=== PATIENT | female | born 1970 | race Caucasian/White ===

== ENCOUNTER 2021-08-09 11:14 | Inpatient (IN) ==
[2021-08-09 11:41] LABS: MEAN CORPUSCULAR VOLUME 83.5 fL (80.0-100.0); MONOCYTES # (AUTO) 0.3 x10^3/uL (0.3-0.8)
[2021-08-09 11:57] VITALS: BMI 25.8
--- NOTE | 2021-08-09 12:06 | DR.COUGH ---
HPI Time Seen Time Seen by Provider: 08/09/21 11:43 PCP Primary Care Physician: NFD Complaint Chief Complaint Doctor Comments: A 51 y/o female sent over to the ED for evaluation of SOB from the infusion center here. She was scheduled for outpt. infusion for COVID. She states that she tested positive for COVID yesterday at a pharmacy in [place], [place]. She has had 5 days of weakness, cough that is mostly dry, muscle soreness, SOB, loss of taste. Chief Complaint:: PT C/O SHORTNESS OF BREATH, HYPOXIA, HEADAHCE, COUGH, NO T ASTE. PT IS A KNOWN COVID POSITIVE. PATIENT WAS SCHEDULED FOR A INFUSION THIS MORNING AND WAS NOTED TO BE HYPOXIC AND SEE THE NEED FOR FURTHER EVALUATION. WHEN PATIENT PRESENTS TO THE ED SHE IS NOTED TO HAVE NC IN PLACE AT 3LPN VIA N/C. PATIENT IS NOTED TO BE SHORT OF BREATH ESPECIALLY WITH EXERTION. PATIENT JUST ANSWERING QUESTIONS IS NOTED TO BE SHORT OF BREATH, BUT WITH OXYGEN IN [place] SHE DOESN'T SEEM TO DESAT AT THIS POINT. COVID-19 Coronavirus risk:travel/contact w/high risk person: Yes Has patient experienced Coronavirus symptoms: Yes Coronavirus symptoms experienced: Fever, Coughing and Shortness of Breath Reviewed Nurses Notes Review: Yes Source History Provided: Patient Mode of Arrival Mode of Arrival: Wheelchair Timing Onset of Chief Complaint: 08/03/21 Context Context: None Pertienent History: None Severity Severity of Cough: Moderate Shortness of Breath: Moderate Associated Signs and Symptoms Associated Signs and Symptoms: Fever and Shortness of Breath PMH PMH Past Medical History: No Past Surgical History: No Unable to Obtain Due To: denies Altered mental status, Dementia, Medical urgency and Intubated Family History History of Family Medical Conditions: No Social History Does any household member use tobacco: No Alcohol Use: None Do you use any recreational Drugs:: No Lives With: Family Lives Where: Home Travel Risk Coronavirus risk:travel/contact w/high risk person: Yes Has patient experienced Coronavirus symptoms: Yes Coronavirus symptoms experienced: Fever, Coughing and Shortness of Breath Infectious screening In the last 2 months have you had wt loss of >10#?: NO Have you had fever, night sweats or hemotysis?: No Have you traveled outside the country in the last 6 months?: No Isolation: Droplet ROS Review of Systems Constitutional: Weakness Eyes: No Symptoms Reported ENTM: No Symptoms Reported Respiratoy: Productive Cough, Non-Productive Cough and Short of Breath Cardiovascular: No Symptoms Reported Gastrointestinal/Abdominal: Other (loss of taste) Genitourinary: No Symptoms Reported Neurological: No Symptoms Reported Musculoskeletal: No Symptoms Reported Integumentary: No Symptoms Reported Hematologic/Lymphatic: No Symptoms Reported Endocrine: No Symptoms Reported Psychiatric: No Symptoms Reported PE Vitals Vitals: Temperature 98.6 F Pulse Rate [Right Brachial] 104 Pulse Rate 101 Respiratory Rate 24 Blood Pressure [Right Arm] 142/64 Blood Pressure 133/60 O2 Sat by Pulse Oximetry 92 General Limitations: No Limitations General Appearance: Alert and In No Apparent Distress Head Head Exam: Normal Inspection, Atraumatic and Normocephalic Eyes Eye exam: Normal Appearance and EOMI ENT ENT Exam: Normal Exam, Normal Oropharynx, Normal External Ear Exam and Mucous Membranes Moist Neck Neck Exam: Normal Inspection, Full ROM and Trachea Midline Chest Chest Inspection: Normal Inspection and Symmetric Chest Wall Rise Respiratory Respiratory Exam: Normal Lung Sounds Bilat Cardiovascular Cardiovascular Exam: Regular Rate, Normal Rhythm, Normal Heart Sounds, +S1 and +S2 Abdominal Exam Abdominal Exam: Normal Inspection, Normal Bowel Sounds and Soft Extremities Extremities Exam: Normal Inspection and Full ROM Back Back Exam: Normal Inspection and Full ROM Neurologic Neurological Exam: Alert and Oriented X3 Psychiatric Psychiatric Exam: Normal Affect and Normal Mood Skin Skin Exam: Intact COURSE Reevaluation 1st: Unchanged Consultation Consultation Comments: I spoke with her referring physician (Dr. ALFARO) and reviewed the labs. and CXR with him. Dr. ALFARO agreed with my recommendation for in-house treatment for COVID-19 pneumonia using Remdesivir daily infusion. I did also inform the pt. of plan to admit her for treatment and she is alright with the recommendation also. . ROR Labs Reviewed Laboratory Results Reviewed?: Yes Result Diagrams: 08/09/21 11:50 08/09/21 11:50 Laboratory: WBC 3.5 X10^3/uL (3.6-10.0) L 08/09/21 11:50 RBC 4.23 X10^6/uL (3.5-5.4) 08/09/21 11:50 Hgb 11.9 g/dL (12.0-16.0) L 08/09/21 11:50 Hct 35.3 % (36.0-47.0) L 08/09/21 11:50 MCV 83.5 fL (80.0-100.0) 08/09/21 11:50 MCH 28.2 pg (27.0-34.0) 08/09/21 11:50 MCHC 33.7 g/dL (33.0-35.0) 08/09/21 11:50 RDW 14.9 % (11.6-16.5) 08/09/21 11:50 Plt Count 150 X10^3/uL (150.0-450.0) 08/09/21 11:50 MPV 8.5 fL (7.4-11.0) 08/09/21 11:50 Neut % (Auto) 68.5 % (42.0-75.0) 08/09/21 11:50 Lymph % (Auto) 23.9 % (21.0-51.0) 08/09/21 11:50 [place] % (Auto) 7.4 % (0.0-13.0) 08/09/21 11:50 Eos % (Auto) 0.0 % (0.9-2.9) L 08/09/21 11:50 Baso % (Auto) 0.2 % (0.2-1.0) 08/09/21 11:50 Neut # (Auto) 2.4 x10^3/uL (2.2-4.8) 08/09/21 11:50 Lymph # (Auto) 0.8 X10^3/uL (1.3-2.9) L 08/09/21 11:50 [place] # (Auto) 0.3 x10^3/uL (0.3-0.8) 08/09/21 11:50 Eos # (Auto) 0.0 x10^3/uL (0.0-0.2) 08/09/21 11:50 Baso # (Auto) 0.0 X10^3/uL (0.0-0.1) 08/09/21 11:50 Absolute Nucleated RBC 0.2 /100WBC 08/09/21 11:50 D-Dimer 0.77 ug/ml (0.0-0.57) H* 08/09/21 11:50 Sample Site Lr 08/09/21 12:03 ABG pH 7.470 (7.35-7.45) H 08/09/21 12:03 ABG pCO2 31.0 mmHg (35.0-45.0) L 08/09/21 12:03 ABG pO2 78.0 mmHg (80.0-100.0) L 08/09/21 12:03 ABG HCO3 22.6 mmol/L (22-26) 08/09/21 12:03 ABG O2 Saturation 96.0 % (90-100) 08/09/21 12:03 ABG Base Excess -0.3 mmol/L (-2.0-2.0) 08/09/21 12:03 Robert Test Pos 08/09/21 12:03 A-a Gradient 83.0 mmHg 08/09/21 12:03 FiO2 28.0 08/09/21 12:03 Blood Gas Comments Darshan well. sd 08/09/21 12:03 Sodium 134 mmol/L (136-145) L 08/09/21 11:50 Corrected Sodium 138 mmol/L (136-145) 08/09/21 11:50 Potassium 4.3 mmol/L (3.5-5.1) 08/09/21 11:50 Chloride 98 mmol/L (98-107) 08/09/21 11:50 Carbon Dioxide 26.7 mmol/L (21-32) 08/09/21 11:50 BUN 21 mg/dL (7-18) H 08/09/21 11:50 Creatinine 1.05 mg/dL (0.55-1.02) H 08/09/21 11:50 Est GFR (MDRD) Af Amer > 60 (>60) 08/09/21 11:50 Est GFR (MDRD) Non-Af 58 (>60) L 08/09/21 11:50 Glucose 246 mg/dL (65-99) H 08/09/21 11:50 Calcium 9.0 mg/dL (8.5-10.1) 08/09/21 11:50 Corrected Calcium 10.0 mg/dL (8.5-10.1) 08/09/21 11:50 Ferritin 1450 ng/mL (8-252) H 08/09/21 11:50 Total Bilirubin 0.60 mg/dL (0.2-1.0) 08/09/21 11:50 AST 119 Units/L (15-37) H 08/09/21 11:50 ALT 62 Units/L (12-78) 08/09/21 11:50 Alkaline Phosphatase 185 Units/L (46-116) H 08/09/21 11:50 C-Reactive Protein 69.90 mg/L (0-3.0) H 08/09/21 11:50 B-Natriuretic Peptide 42.1 pg/mL (0-79) 08/09/21 11:50 Total Protein 8.3 g/dL (6.4-8.2) H 08/09/21 11:50 Albumin 2.7 g/dL (3.4-5.0) L 08/09/21 11:50 Globulin 5.6 g/dL (2.5-4.5) H 08/09/21 11:50 Albumin/Globulin Ratio 0.5 Ratio (1.1-2.1) L 08/09/21 11:50 XRAY XRAY Interpreted by: Self X-ray Results: CXR: Nodular opacities b/l, compatible with COVID Pneumonia. Radiology report is pending. Opioid Opioid Risk Tool Age (Rahul box if 16-45): No History of Preadolescent Sexual Abuse: No Total: 0 Total Score Risk Category: Low Risk Copyright: Flaquito HUDDLESTON predicting aberrant behaviors Diagnosis Discharge Problem: Pneumonia due to COVID-19 virus
[2021-08-09 12:08] LABS: ABG ALLEN TEST POS; ABG BASE EXCESS -0.3 mmol/L (-2.0-2.0); ABG HCO3 22.6 mmol/L (22-26)
[2021-08-09 12:08] LABS: BASOPHILS % (AUTO) 0.2 % (0.2-1.0); HEMATOCRIT 35.3 % (36.0-47.0); HEMOGLOBIN 11.9 g/dL (12.0-16.0); LYMPHOCYTES # (AUTO) 0.8 X10^3/uL (1.3-2.9); LYMPHOCYTES % (AUTO) 23.9 % (21.0-51.0); MEAN CORPUSCULAR HEMOGLOBIN 28.2 pg (27.0-34.0); MEAN CORPUSCULAR HGB CONC 33.7 g/dL (33.0-35.0); MEAN PLATELET VOLUME 8.5 fL (7.4-11.0); MONOCYTES % (AUTO) 7.4 % (0.0-13.0); NEUTROPHILS # (AUTO) 2.4 x10^3/uL (2.2-4.8); NEUTROPHILS % (AUTO) 68.5 % (42.0-75.0); PLATELET COUNT 150 X10^3/uL (150.0-450.0); RED BLOOD COUNT 4.23 X10^6/uL (3.5-5.4); RED CELL DISTRIBUTION WIDTH 14.9 % (11.6-16.5); WHITE BLOOD COUNT 3.5 X10^3/uL (3.6-10.0)
[2021-08-09 12:18] LABS: ALANINE AMINOTRANSFERASE 62 Units/L (12-78); ALBUMIN 2.7 g/dL (3.4-5.0); ALKALINE PHOSPHATASE 185 Units/L (46-116); ASPARTATE AMINO TRANSFERASE 119 Units/L (15-37); BLOOD UREA NITROGEN 21 mg/dL (7-18); CARBON DIOXIDE 26.7 mmol/L (21-32); CHLORIDE 98 mmol/L (98-107); COR NA(FOR HYPERGLY) 138 mmol/L (136-145); CREATININE 1.05 mg/dL (0.55-1.02); SODIUM 134 mmol/L (136-145); TOTAL PROTEIN 8.3 g/dL (6.4-8.2); eGFR NON BLACK RACES 58 (>60)
[2021-08-09] MEDS ORDERED: BENADRYL INJ 50 MG VIAL IV ONE (15:10)
[2021-08-09] MEDS ORDERED: REMDESIVIR 200 MG in NS 250 ML IV 250 ML IV ONE (15:18)
[2021-08-09] MEDS ORDERED: TYLENOL 325 MG TAB PO ONE (16:12)
[2021-08-09] MEDS ORDERED: BENADRYL INJ 50 MG VIAL ONE (16:12)
[2021-08-09] MEDS ORDERED: SOLU-Medrol 125 MG VIAL ONE (16:12)
[2021-08-09] MEDS ORDERED: NS 250 ML IV 250 ML IV ONE (16:13)
[2021-08-09] MEDS ORDERED: REMDESIVIR IV ONE (16:13)
--- NOTE | 2021-08-09 16:26 | DR.H&P ---
H&P History & Physical for Day of: H&P Date: 08/09/21 Chief Complaint Chief Complaint: Covid-19 Allergies Allergies Allergy/AdvReac Type Severity Reaction Status Date / Time No Known Drug Allergies Allergy Verified 08/09/21 11:15 History of Present Illness History of Present Illness: 51 yo WF with Covid pneumonia and hypoxia. Social History Does patient currently use any type of tobacco product: No Have you used tobacco products in the last 12 months: No Does any household member use tobacco: No Alcohol Use: None Medications Home Medications: No Known Drug Allergies Allergy (Verified 08/09/21 11:15) CONTINUE taking the following medications NK 08/09/21 [History] Labs Result Diagrams: 08/10/21 04:07 08/10/21 04:07 Labs: Laboratory WBC 3.5 X10^3/uL (3.6-10.0) L 08/09/21 11:50 RBC 4.23 X10^6/uL (3.5-5.4) 08/09/21 11:50 Hgb 11.9 g/dL (12.0-16.0) L 08/09/21 11:50 Hct 35.3 % (36.0-47.0) L 08/09/21 11:50 MCV 83.5 fL (80.0-100.0) 08/09/21 11:50 MCH 28.2 pg (27.0-34.0) 08/09/21 11:50 MCHC 33.7 g/dL (33.0-35.0) 08/09/21 11:50 RDW 14.9 % (11.6-16.5) 08/09/21 11:50 Plt Count 150 X10^3/uL (150.0-450.0) 08/09/21 11:50 MPV 8.5 fL (7.4-11.0) 08/09/21 11:50 Neut % (Auto) 68.5 % (42.0-75.0) 08/09/21 11:50 Lymph % (Auto) 23.9 % (21.0-51.0) 08/09/21 11:50 [place] % (Auto) 7.4 % (0.0-13.0) 08/09/21 11:50 Eos % (Auto) 0.0 % (0.9-2.9) L 08/09/21 11:50 Baso % (Auto) 0.2 % (0.2-1.0) 08/09/21 11:50 Neut # (Auto) 2.4 x10^3/uL (2.2-4.8) 08/09/21 11:50 Lymph # (Auto) 0.8 X10^3/uL (1.3-2.9) L 08/09/21 11:50 [place] # (Auto) 0.3 x10^3/uL (0.3-0.8) 08/09/21 11:50 Eos # (Auto) 0.0 x10^3/uL (0.0-0.2) 08/09/21 11:50 Baso # (Auto) 0.0 X10^3/uL (0.0-0.1) 08/09/21 11:50 Absolute Nucleated RBC 0.2 /100WBC 08/09/21 11:50 D-Dimer 0.77 ug/ml (0.0-0.57) H* 08/09/21 11:50 Sample Site Lr 08/09/21 12:03 ABG pH 7.470 (7.35-7.45) H 08/09/21 12:03 ABG pCO2 31.0 mmHg (35.0-45.0) L 08/09/21 12:03 ABG pO2 78.0 mmHg (80.0-100.0) L 08/09/21 12:03 ABG HCO3 22.6 mmol/L (22-26) 08/09/21 12:03 ABG O2 Saturation 96.0 % (90-100) 08/09/21 12:03 ABG Base Excess -0.3 mmol/L (-2.0-2.0) 08/09/21 12:03 Robert Test Pos 08/09/21 12:03 A-a Gradient 83.0 mmHg 08/09/21 12:03 FiO2 28.0 08/09/21 12:03 Blood Gas Comments Darshan well. sd 08/09/21 12:03 Sodium 134 mmol/L (136-145) L 08/09/21 11:50 Corrected Sodium 138 mmol/L (136-145) 08/09/21 11:50 Potassium 4.3 mmol/L (3.5-5.1) 08/09/21 11:50 Chloride 98 mmol/L (98-107) 08/09/21 11:50 Carbon Dioxide 26.7 mmol/L (21-32) 08/09/21 11:50 BUN 21 mg/dL (7-18) H 08/09/21 11:50 Creatinine 1.05 mg/dL (0.55-1.02) H 08/09/21 11:50 Est GFR (MDRD) Af Amer > 60 (>60) 08/09/21 11:50 Est GFR (MDRD) Non-Af 58 (>60) L 08/09/21 11:50 Glucose 246 mg/dL (65-99) H 08/09/21 11:50 Calcium 9.0 mg/dL (8.5-10.1) 08/09/21 11:50 Corrected Calcium 10.0 mg/dL (8.5-10.1) 08/09/21 11:50 Ferritin 1450 ng/mL (8-252) H 08/09/21 11:50 Total Bilirubin 0.60 mg/dL (0.2-1.0) 08/09/21 11:50 AST 119 Units/L (15-37) H 08/09/21 11:50 ALT 62 Units/L (12-78) 08/09/21 11:50 Alkaline Phosphatase 185 Units/L (46-116) H 08/09/21 11:50 C-Reactive Protein 69.90 mg/L (0-3.0) H 08/09/21 11:50 B-Natriuretic Peptide 42.1 pg/mL (0-79) 08/09/21 11:50 Total Protein 8.3 g/dL (6.4-8.2) H 08/09/21 11:50 Albumin 2.7 g/dL (3.4-5.0) L 08/09/21 11:50 Globulin 5.6 g/dL (2.5-4.5) H 08/09/21 11:50 Albumin/Globulin Ratio 0.5 Ratio (1.1-2.1) L 08/09/21 11:50 Review of Systems Constitutional: Fever and Weakness Eyes: No Symptoms Reported ENT: Nose Discharge Respiratory: Cough and SOB with Excertion Cardiovascular: No Symptoms Reported Gastrointestinal: No Symptoms Reported Genitourinary: No Symptoms Reported Musculoskeletal: No Symptoms Reported Skin: No Symptoms Reported Neurological: Weakness Physical Exam Vital Signs: Temperature 98.6 F Pulse Rate [Right Brachial] 104 Pulse Rate 106 Respiratory Rate 24 Blood Pressure [Right Arm] 142/64 Blood Pressure 158/70 O2 Sat by Pulse Oximetry 90 Oriented: Normal Eyes: Normal Nose: Discharge Throat: Normal Respiratory: Rhonchi Throughout Cardiovascular: Normal Auscultation: Bowel Sounds: Normal Palpation: Normal Tenderness: Normal Skin: Normal Musculoskeletal: Normal Psychiatric: Normal Mood Description: Calm Affect: Normal Speech Pattern: Clear Assessment/Plan (1) Pneumonia due to COVID-19 virus: Narrative Support Text: Feels bad. Weak and has SOB. Status: Acute Plan: Covid/Remdesivir Protocol. Review H&P Reviewed: Yes Patient was examined?: Yes
[2021-08-09] MEDS: TYLENOL 325 MG TAB PO PRN (16:37)
[2021-08-09] MEDS ORDERED: SOLU-Medrol 125 MG VIAL IVP ONE (16:38)
[2021-08-09] MEDS ORDERED: NS 1000 ML 1,000 ML ONE (16:42)
[2021-08-09] MEDS: NS 1000 ML 1,000 ML IV SCH (17:22)
[2021-08-09] MEDS ORDERED: BROVANA ONE (19:02)
[2021-08-09] MEDS ORDERED: PULMICORT NEB TX 0.5 MG NEB ONE (19:02)
[2021-08-09] MEDS: BROVANA IN SCH (20:45)
[2021-08-09] MEDS: PULMICORT NEB TX 0.5 MG NEB SCH (20:45)
[2021-08-09] MEDS: ASCORBIC ACID INJ MULTI-DOSE VIAL 1,500 MG in NS 100 ML IV 100 ML IV SCH (21:23)
[2021-08-09] MEDS: LOVENOX INJ 30 MG SYR SC SCH (21:25)
[2021-08-09] MEDS: VIBRAMYCIN PO SCH (21:26)
[2021-08-09] MEDS: PEPCID TAB 40 MG PO SCH (21:26)
[2021-08-09] MEDS: ZINC SULFATE PO SCH (21:26)
[2021-08-09] MEDS: SOLU-Medrol 40 MG VIAL IVP SCH (21:28)
[2021-08-09] MEDS: ZOSYN VIAL 3.375 GRAMS 3.375 G in NS 50 ML IV + SPIKE MINIBAG* 50 ML IV SCH (21:28)
[2021-08-10 01:56] LABS: BILIRUBIN,URINE NEGATIVE (NEGATIVE); BLOOD/HEMOGLOBIN,URINE 2+ (NEGATIVE); GLUCOSE, URINE 4+ (NEGATIVE); KETONES,URINE 2+ (NEGATIVE); LEUKOCYTE ESTERASE ,URINE NEGATIVE (NEGATIVE); NITRITES,URINE NEGATIVE (NEGATIVE); PROTEIN,URINE 3+ (NEGATIVE); UROBILINOGEN,URINE NORMAL (NORMAL)
[2021-08-10 02:24] LABS: APPEARANCE,URINE SLIGHTLY HAZY (CLEAR); BACTERIA,URINE TRACE /HPF (NEGATIVE); COLOR,URINE YELLOW (YELLOW); GRANULAR CASTS,URINE FEW /LPF (NEGATIVE); HYALINE CASTS, URINE FEW /LPF (NEGATIVE); RBC,URINE NONE SEEN /HPF (0-3); SQUAMOUS EPITHELIAL CELL,UR FEW /HPF (NEGATIVE)
[2021-08-10] MEDS: ASCORBIC ACID INJ MULTI-DOSE VIAL 1,500 MG in NS 100 ML IV 100 ML IV SCH ×4 (02:42→20:29)
[2021-08-10 04:59] LABS: ABG ALLEN TEST POS; ABG BASE EXCESS -1.3 mmol/L (-2.0-2.0); ABG HCO3 22.7 mmol/L (22-26)
[2021-08-10 05:15] LABS: BASOPHILS % (AUTO) 0.2 % (0.2-1.0); HEMATOCRIT 33.8 % (36.0-47.0); HEMOGLOBIN 11.3 g/dL (12.0-16.0); LYMPHOCYTES # (AUTO) 0.8 X10^3/uL (1.3-2.9); LYMPHOCYTES % (AUTO) 31.2 % (21.0-51.0); MEAN CORPUSCULAR HEMOGLOBIN 28.1 pg (27.0-34.0); MEAN CORPUSCULAR HGB CONC 33.5 g/dL (33.0-35.0); MEAN CORPUSCULAR VOLUME 84.1 fL (80.0-100.0); MEAN PLATELET VOLUME 8.8 fL (7.4-11.0); MONOCYTES # (AUTO) 0.2 x10^3/uL (0.3-0.8); MONOCYTES % (AUTO) 5.8 % (0.0-13.0); NEUTROPHILS # (AUTO) 1.7 x10^3/uL (2.2-4.8); NEUTROPHILS % (AUTO) 62.8 % (42.0-75.0); PLATELET COUNT 145 X10^3/uL (150.0-450.0); RED BLOOD COUNT 4.02 X10^6/uL (3.5-5.4); RED CELL DISTRIBUTION WIDTH 14.7 % (11.6-16.5); WHITE BLOOD COUNT 2.7 X10^3/uL (3.6-10.0)
[2021-08-10] MEDS: SOLU-Medrol 40 MG VIAL IVP SCH ×3 (05:25→21:51)
[2021-08-10] MEDS: ZOSYN VIAL 3.375 GRAMS 3.375 G in NS 50 ML IV + SPIKE MINIBAG* 50 ML IV SCH ×3 (05:25→21:51)
[2021-08-10 05:27] LABS: ALANINE AMINOTRANSFERASE 61 Units/L (12-78); ALBUMIN 2.4 g/dL (3.4-5.0); ALKALINE PHOSPHATASE 170 Units/L (46-116); ASPARTATE AMINO TRANSFERASE 101 Units/L (15-37); BLOOD UREA NITROGEN 23 mg/dL (7-18); CALCIUM 8.9 mg/dL (8.5-10.1); CARBON DIOXIDE 23.3 mmol/L (21-32); CHLORIDE 100 mmol/L (98-107); COR CA(FOR HYPOALB) 10.2 mg/dL (8.5-10.1); COR NA(FOR HYPERGLY) 144 mmol/L (136-145); CREATININE 0.99 mg/dL (0.55-1.02); LACTIC ACID 1.5 mmol/L (0.4-2.0); SODIUM 137 mmol/L (136-145); TOTAL PROTEIN 7.7 g/dL (6.4-8.2); eGFR NON BLACK RACES > 60 (>60)
[2021-08-10] MEDS: TYLENOL 325 MG TAB PO PRN (05:44)
--- NOTE | 2021-08-10 06:05 | RAD ---
HISTORYCough COVIDSTUDYAP chestCOMPARISONNoneFINDINGSThe heart is not enlarged. There are large areas of confluent airspace disease in both lungs. There is relative sparing of the left upper lobe. No pneumothorax or pleural fluid identified.IMPRESSIONBilateral pneumonia.Electronically signed by: LANG HARE (Aug 10, 2021 06:03:45)
--- NOTE | 2021-08-10 06:20 | RAD ---
HISTORYCOVID-19 pneumoniaSTUDYAP [id number] size is unchanged. Bilateral pulmonary infiltrates are noted, unchanged in the left lung and slightly improved in the right lung periphery. No new areas of involvement noted. Deviation of the upper trachea to the right is noted at the thoracic inlet.IMPRESSION1. Persistent pneumonia with slight interval improvement in the right lung.2. Deviation of the trachea from left to right at the thoracic inlet is consistent with asymmetric thyroid enlargement, documented on previous CT of 07/16/2018.Electronically signed by: LANG HARE (Aug 10, 2021 06:18:28)
[2021-08-10] MEDS: BROVANA IN SCH ×2 (08:51→21:00)
[2021-08-10] MEDS: PULMICORT NEB TX 0.5 MG NEB SCH ×2 (08:51→21:00)
[2021-08-10] MEDS ORDERED: VITAMIN A PO SCH (09:00)
[2021-08-10] MEDS ORDERED: VITAMIN D (1.25MG) PO SCH (09:00)
[2021-08-10] MEDS: PEPCID TAB 40 MG PO SCH ×2 (09:37→20:31)
[2021-08-10] MEDS: LOVENOX INJ 30 MG SYR SC SCH ×2 (09:37→20:30)
[2021-08-10] MEDS: TRICOR TAB 160 MG PO SCH (09:38)
[2021-08-10] MEDS: REMDESIVIR 100 MG in NS 250 ML IV 250 ML IV SCH (09:38)
[2021-08-10] MEDS: VIBRAMYCIN PO SCH ×2 (09:38→20:32)
[2021-08-10] MEDS: ZINC SULFATE PO SCH ×2 (09:39→20:36)
--- NOTE | 2021-08-10 11:19 | PCM.PROG ---
Progress Note Progress Note for Day of Date of Exam: 08/10/21 Subjective Subjective: Still has SOB and Cough. Weak still also. Past Medical Family Social History Past Med/Fam/Surg Hx: No changes since H&P Allergies: Allergies No Known Drug Allergies Allergy (Verified 08/09/21 11:15) Review of Systems ROS: No change since H&P Vital Signs and I&O's Vital Signs: Temperature 97.7 F Pulse Rate [Right Brachial] 88 Pulse Rate 77 Respiratory Rate 45 Blood Pressure [Right Arm] 154/85 Blood Pressure 164/82 O2 Sat by Pulse Oximetry 85 Intake and Output: Intake & Output 08/07/21 08/08/21 08/09/21 08/10/21 11:59 11:59 11:59 11:59 Intake Total 1014 / 1014 Balance 1014 / 1014 Physical Exam Oriented: Normal Eyes: Normal Nose: Normal Respiratory: Generalized and Rhonchi Cardiovascular: Normal Auscultation: Bowel Sounds: Normal Tenderness: Normal Skin: Normal Psychiatric: Normal Mood Description: Calm Affect: Normal Speech Pattern: Clear Laboratory and Diagnostics Result Diagrams: 08/10/21 04:07 08/10/21 04:07 Labs: Laboratory WBC 2.7 X10^3/uL (3.6-10.0) L 08/10/21 04:07 RBC 4.02 X10^6/uL (3.5-5.4) 08/10/21 04:07 Hgb 11.3 g/dL (12.0-16.0) L 08/10/21 04:07 Hct 33.8 % (36.0-47.0) L 08/10/21 04:07 MCV 84.1 fL (80.0-100.0) 08/10/21 04:07 MCH 28.1 pg (27.0-34.0) 08/10/21 04:07 MCHC 33.5 g/dL (33.0-35.0) 08/10/21 04:07 RDW 14.7 % (11.6-16.5) 08/10/21 04:07 Plt Count 145 X10^3/uL (150.0-450.0) L 08/10/21 04:07 MPV 8.8 fL (7.4-11.0) 08/10/21 04:07 Neut % (Auto) 62.8 % (42.0-75.0) 08/10/21 04:07 Lymph % (Auto) 31.2 % (21.0-51.0) 08/10/21 04:07 [place] % (Auto) 5.8 % (0.0-13.0) 08/10/21 04:07 Eos % (Auto) 0.0 % (0.9-2.9) L 08/10/21 04:07 Baso % (Auto) 0.2 % (0.2-1.0) 08/10/21 04:07 Neut # (Auto) 1.7 x10^3/uL (2.2-4.8) L 08/10/21 04:07 Lymph # (Auto) 0.8 X10^3/uL (1.3-2.9) L 08/10/21 04:07 [place] # (Auto) 0.2 x10^3/uL (0.3-0.8) L 08/10/21 04:07 Eos # (Auto) 0.0 x10^3/uL (0.0-0.2) 08/10/21 04:07 Baso # (Auto) 0.0 X10^3/uL (0.0-0.1) 08/10/21 04:07 Absolute Nucleated RBC 0.1 /100WBC 08/10/21 04:07 D-Dimer 0.77 ug/ml (0.0-0.57) H* 08/09/21 11:50 Sample Site Rr 08/10/21 04:54 ABG pH 7.420 (7.35-7.45) 08/10/21 04:54 ABG pCO2 35.0 mmHg (35.0-45.0) 08/10/21 04:54 ABG pO2 61.0 mmHg (80.0-100.0) L 08/10/21 04:54 ABG HCO3 22.7 mmol/L (22-26) 08/10/21 04:54 ABG O2 Saturation 91.0 % (90-100) 08/10/21 04:54 ABG Base Excess -1.3 mmol/L (-2.0-2.0) 08/10/21 04:54 Robert Test Pos 08/10/21 04:54 A-a Gradient 152.0 mmHg 08/10/21 04:54 FiO2 36.0 08/10/21 04:54 Blood Gas Comments Darshan well ae 08/10/21 04:54 Sodium 137 mmol/L (136-145) 08/10/21 04:07 Corrected Sodium 144 mmol/L (136-145) 08/10/21 04:07 Potassium 4.2 mmol/L (3.5-5.1) 08/10/21 04:07 Chloride 100 mmol/L (98-107) 08/10/21 04:07 Carbon Dioxide 23.3 mmol/L (21-32) 08/10/21 04:07 BUN 23 mg/dL (7-18) H 08/10/21 04:07 Creatinine 0.99 mg/dL (0.55-1.02) 08/10/21 04:07 Est GFR (MDRD) Af Amer > 60 (>60) 08/10/21 04:07 Est GFR (MDRD) Non-Af > 60 (>60) 08/10/21 04:07 Glucose 398 mg/dL (65-99) H 08/10/21 04:07 Lactic Acid 1.5 mmol/L (0.4-2.0) 08/10/21 04:07 Calcium 8.9 mg/dL (8.5-10.1) 08/10/21 04:07 Corrected Calcium 10.2 mg/dL (8.5-10.1) H 08/10/21 04:07 Ferritin 1450 ng/mL (8-252) H 08/09/21 11:50 Total Bilirubin 0.60 mg/dL (0.2-1.0) 08/10/21 04:07 AST 101 Units/L (15-37) H 08/10/21 04:07 ALT 61 Units/L (12-78) 08/10/21 04:07 Alkaline Phosphatase 170 Units/L (46-116) H 08/10/21 04:07 C-Reactive Protein 69.90 mg/L (0-3.0) H 08/09/21 11:50 B-Natriuretic Peptide 42.1 pg/mL (0-79) 08/09/21 11:50 Total Protein 7.7 g/dL (6.4-8.2) 08/10/21 04:07 Albumin 2.4 g/dL (3.4-5.0) L 08/10/21 04:07 Globulin 5.3 g/dL (2.5-4.5) H 08/10/21 04:07 Albumin/Globulin Ratio 0.5 Ratio (1.1-2.1) L 08/10/21 04:07 Specimen Type Clean catch urine 08/10/21 01:09 Urine Color Yellow (YELLOW) 08/10/21 01:09 Urine Appearance Slightly hazy (CLEAR) 08/10/21 01:09 Urine pH 6.0 (5.0 - 8.0) 08/10/21 01:09 Ur Specific [place] 1.020 (1.000-1.030) 08/10/21 01:09 Urine Protein 3+ (NEGATIVE) 08/10/21 01:09 Urine Glucose (UA) 4+ (NEGATIVE) 08/10/21 01:09 Urine Ketones 2+ (NEGATIVE) 08/10/21 01:09 Urine Occult Blood 2+ (NEGATIVE) 08/10/21 01:09 Urine Nitrite Negative (NEGATIVE) 08/10/21 01:09 Urine Bilirubin Negative (NEGATIVE) 08/10/21 01:09 Urine Urobilinogen Normal (NORMAL) 08/10/21 01:09 Ur Leukocyte Esterase Negative (NEGATIVE) 08/10/21 01:09 Urine RBC None seen /HPF (0-3) 08/10/21 01:09 Urine WBC None seen /HPF (0-5) 08/10/21 01:09 Ur Squamous Epith Cells Few /HPF (NEGATIVE) 08/10/21 01:09 Urine Bacteria Trace /HPF (NEGATIVE) 08/10/21 01:09 Hyaline Casts Few /LPF (NEGATIVE) 08/10/21 01:09 Granular Casts Few /LPF (NEGATIVE) 08/10/21 01:09 Ur Culture Indicated? No/not indicated 08/10/21 01:09 Radiology Reviewed: Yes Plan (1) Pneumonia due to COVID-19 virus: Status: Acute Plan: Covid/Remdesivir Protocol.
[2021-08-10] MEDS: NS 1000 ML 1,000 ML IV SCH (17:26)
[2021-08-10] MEDS: VALIUM PO PRN (20:36)
[2021-08-11] MEDS: ASCORBIC ACID INJ MULTI-DOSE VIAL 1,500 MG in NS 100 ML IV 100 ML IV SCH ×4 (02:11→20:14)
[2021-08-11 05:14] LABS: BASOPHILS % (AUTO) 0.1 % (0.2-1.0); EOSINOPHILS % (AUTO) 0.1 % (0.9-2.9); HEMATOCRIT 33.1 % (36.0-47.0); LYMPHOCYTES # (AUTO) 1.3 X10^3/uL (1.3-2.9); LYMPHOCYTES % (AUTO) 25.6 % (21.0-51.0); MEAN CORPUSCULAR HEMOGLOBIN 28.1 pg (27.0-34.0); MEAN CORPUSCULAR HGB CONC 33.2 g/dL (33.0-35.0); MEAN CORPUSCULAR VOLUME 84.4 fL (80.0-100.0); MEAN PLATELET VOLUME 8.8 fL (7.4-11.0); MONOCYTES # (AUTO) 0.4 x10^3/uL (0.3-0.8); NEUTROPHILS # (AUTO) 3.3 x10^3/uL (2.2-4.8); NEUTROPHILS % (AUTO) 66.2 % (42.0-75.0); PLATELET COUNT 172 X10^3/uL (150.0-450.0); RED BLOOD COUNT 3.92 X10^6/uL (3.5-5.4); WHITE BLOOD COUNT 4.9 X10^3/uL (3.6-10.0)
[2021-08-11 05:25] LABS: ALANINE AMINOTRANSFERASE 55 Units/L (12-78); ALBUMIN 2.2 g/dL (3.4-5.0); ALKALINE PHOSPHATASE 153 Units/L (46-116); ASPARTATE AMINO TRANSFERASE 69 Units/L (15-37); BLOOD UREA NITROGEN 25 mg/dL (7-18); CALCIUM 8.9 mg/dL (8.5-10.1); CARBON DIOXIDE 24.9 mmol/L (21-32); CHLORIDE 102 mmol/L (98-107); COR CA(FOR HYPOALB) 10.3 mg/dL (8.5-10.1); COR NA(FOR HYPERGLY) 147 mmol/L (136-145); CREATININE 0.98 mg/dL (0.55-1.02); SODIUM 139 mmol/L (136-145); TOTAL PROTEIN 7.1 g/dL (6.4-8.2); eGFR NON BLACK RACES > 60 (>60)
[2021-08-11] MEDS: SOLU-Medrol 40 MG VIAL IVP SCH ×3 (05:46→21:15)
[2021-08-11] MEDS: ZOSYN VIAL 3.375 GRAMS 3.375 G in NS 50 ML IV + SPIKE MINIBAG* 50 ML IV SCH ×3 (05:49→21:18)
[2021-08-11 06:13] LABS: ABG BASE EXCESS 1.8 mmol/L (-2.0-2.0); ABG HCO3 25.7 mmol/L (22-26)
[2021-08-11] MEDS: HumuLIN R SUBCUT PRN ×4 (06:45→20:17)
[2021-08-11] MEDS: PULMICORT NEB TX 0.5 MG NEB SCH ×2 (08:55→21:00)
[2021-08-11] MEDS: BROVANA IN SCH ×2 (08:55→21:00)
[2021-08-11] MEDS ORDERED: NS 100 ML IV 100 ML ONE (09:24)
[2021-08-11] MEDS: TRICOR TAB 160 MG PO SCH (09:31)
[2021-08-11] MEDS: VIBRAMYCIN PO SCH ×2 (09:31→20:18)
[2021-08-11] MEDS: PEPCID TAB 40 MG PO SCH ×2 (09:31→20:17)
[2021-08-11] MEDS: ZINC SULFATE PO SCH ×2 (09:31→20:18)
[2021-08-11] MEDS: REMDESIVIR 100 MG in NS 250 ML IV 250 ML IV SCH (09:31)
[2021-08-11] MEDS: VITAMIN D3 125 mcg (5,000 UNITS) PO SCH (09:32)
[2021-08-11] MEDS: LOVENOX INJ 30 MG SYR SC SCH ×2 (09:34→20:15)
--- NOTE | 2021-08-11 11:28 | PCM.PROG ---
Progress Note Progress Note for Day of Date of Exam: 08/11/21 Subjective Subjective: Still has SOB and Cough. Weak still also. Anxiety yesterday in which she was started on PO Valium is much improved. Past Medical Family Social History Past Med/Fam/Surg Hx: No changes since H&P Allergies: Allergies No Known Drug Allergies Allergy (Verified 08/09/21 11:15) Review of Systems ROS: No change since H&P Vital Signs and I&O's Vital Signs: Temperature 97.9 F Pulse Rate [Right Brachial] 88 Pulse Rate 87 Respiratory Rate 39 Blood Pressure [Right Arm] 154/85 Blood Pressure 172/86 O2 Sat by Pulse Oximetry 91 Intake and Output: Intake & Output 08/08/21 08/09/21 08/10/21 08/11/21 11:59 11:59 11:59 11:59 Intake Total 1014 / 1014 2044 / 2044 Output Total 300 / 300 Balance 1014 / 1014 1744 / 1744 Physical Exam Oriented: Normal Respiratory: Generalized and Rhonchi Cardiovascular: Normal Auscultation: Bowel Sounds: Normal Tenderness: Normal Skin: Normal Musculoskeletal: Normal Psychiatric: Normal Mood Description: Calm Affect: Normal Speech Pattern: Clear and Appropriate Laboratory and Diagnostics Result Diagrams: 08/11/21 04:14 08/11/21 04:14 Labs: Laboratory WBC 4.9 X10^3/uL (3.6-10.0) 08/11/21 04:14 RBC 3.92 X10^6/uL (3.5-5.4) 08/11/21 04:14 Hgb 11.0 g/dL (12.0-16.0) L 08/11/21 04:14 Hct 33.1 % (36.0-47.0) L 08/11/21 04:14 MCV 84.4 fL (80.0-100.0) 08/11/21 04:14 MCH 28.1 pg (27.0-34.0) 08/11/21 04:14 MCHC 33.2 g/dL (33.0-35.0) 08/11/21 04:14 RDW 15.0 % (11.6-16.5) 08/11/21 04:14 Plt Count 172 X10^3/uL (150.0-450.0) 08/11/21 04:14 MPV 8.8 fL (7.4-11.0) 08/11/21 04:14 Neut % (Auto) 66.2 % (42.0-75.0) 08/11/21 04:14 Lymph % (Auto) 25.6 % (21.0-51.0) 08/11/21 04:14 [place] % (Auto) 8.0 % (0.0-13.0) 08/11/21 04:14 Eos % (Auto) 0.1 % (0.9-2.9) L 08/11/21 04:14 Baso % (Auto) 0.1 % (0.2-1.0) L 08/11/21 04:14 Neut # (Auto) 3.3 x10^3/uL (2.2-4.8) 08/11/21 04:14 Lymph # (Auto) 1.3 X10^3/uL (1.3-2.9) 08/11/21 04:14 [place] # (Auto) 0.4 x10^3/uL (0.3-0.8) 08/11/21 04:14 Eos # (Auto) 0.0 x10^3/uL (0.0-0.2) 08/11/21 04:14 Baso # (Auto) 0.0 X10^3/uL (0.0-0.1) 08/11/21 04:14 Absolute Nucleated RBC 0.1 /100WBC 08/11/21 04:14 D-Dimer 0.77 ug/ml (0.0-0.57) H* 08/09/21 11:50 Sample Site Rbra 08/11/21 06:11 ABG pH 7.450 (7.35-7.45) 08/11/21 06:11 ABG pCO2 37.0 mmHg (35.0-45.0) 08/11/21 06:11 ABG pO2 61.0 mmHg (80.0-100.0) L 08/11/21 06:11 ABG HCO3 25.7 mmol/L (22-26) 08/11/21 06:11 ABG O2 Saturation 92.0 % (90-100) 08/11/21 06:11 ABG Base Excess 1.8 mmol/L (-2.0-2.0) 08/11/21 06:11 Robert Test Na 08/11/21 06:11 A-a Gradient 149.0 mmHg 08/11/21 06:11 FiO2 36.0 08/11/21 06:11 Blood Gas Comments Darshan abg well-mtf 08/11/21 06:11 Sodium 139 mmol/L (136-145) 08/11/21 04:14 Corrected Sodium 147 mmol/L (136-145) H 08/11/21 04:14 Potassium 3.8 mmol/L (3.5-5.1) 08/11/21 04:14 Chloride 102 mmol/L (98-107) 08/11/21 04:14 Carbon Dioxide 24.9 mmol/L (21-32) 08/11/21 04:14 BUN 25 mg/dL (7-18) H 08/11/21 04:14 Creatinine 0.98 mg/dL (0.55-1.02) 08/11/21 04:14 Est GFR (MDRD) Af Amer > 60 (>60) 08/11/21 04:14 Est GFR (MDRD) Non-Af > 60 (>60) 08/11/21 04:14 Glucose 432 mg/dL (65-99) H 08/11/21 04:14 Hemoglobin A1c 8.9 % 08/11/21 04:14 Lactic Acid 1.5 mmol/L (0.4-2.0) 08/10/21 04:07 Calcium 8.9 mg/dL (8.5-10.1) 08/11/21 04:14 Corrected Calcium 10.3 mg/dL (8.5-10.1) H 08/11/21 04:14 Ferritin 1340 ng/mL (8-252) H 08/11/21 04:14 Total Bilirubin 0.40 mg/dL (0.2-1.0) 08/11/21 04:14 AST 69 Units/L (15-37) H 08/11/21 04:14 ALT 55 Units/L (12-78) 08/11/21 04:14 Alkaline Phosphatase 153 Units/L (46-116) H 08/11/21 04:14 C-Reactive Protein 19.60 mg/L (0-3.0) H 08/11/21 04:14 B-Natriuretic Peptide 42.1 pg/mL (0-79) 08/09/21 11:50 Total Protein 7.1 g/dL (6.4-8.2) 08/11/21 04:14 Albumin 2.2 g/dL (3.4-5.0) L 08/11/21 04:14 Globulin 4.9 g/dL (2.5-4.5) H 08/11/21 04:14 Albumin/Globulin Ratio 0.4 Ratio (1.1-2.1) L 08/11/21 04:14 Specimen Type Clean catch urine 08/10/21 01:09 Urine Color Yellow (YELLOW) 08/10/21 01:09 Urine Appearance Slightly hazy (CLEAR) 08/10/21 01:09 Urine pH 6.0 (5.0 - 8.0) 08/10/21 01:09 Ur Specific Hooper 1.020 (1.000-1.030) 08/10/21 01:09 Urine Protein 3+ (NEGATIVE) 08/10/21 01:09 Urine Glucose (UA) 4+ (NEGATIVE) 08/10/21 01:09 Urine Ketones 2+ (NEGATIVE) 08/10/21 01:09 Urine Occult Blood 2+ (NEGATIVE) 08/10/21 01:09 Urine Nitrite Negative (NEGATIVE) 08/10/21 01:09 Urine Bilirubin Negative (NEGATIVE) 08/10/21 01:09 Urine Urobilinogen Normal (NORMAL) 08/10/21 01:09 Ur Leukocyte Esterase Negative (NEGATIVE) 08/10/21 01:09 Urine RBC None seen /HPF (0-3) 08/10/21 01:09 Urine WBC None seen /HPF (0-5) 08/10/21 01:09 Ur Squamous Epith Cells Few /HPF (NEGATIVE) 08/10/21 01:09 Urine Bacteria Trace /HPF (NEGATIVE) 08/10/21 01:09 Hyaline Casts Few /LPF (NEGATIVE) 08/10/21 01:09 Granular Casts Few /LPF (NEGATIVE) 08/10/21 01:09 Ur Culture Indicated? No/not indicated 08/10/21 01:09 Plan (1) Pneumonia due to COVID-19 virus: Status: Acute Narrative Support Text: Slightly better overall. Plan: Covid/Remdesivir Protocol. Day 3 (2) DM2 (diabetes mellitus, type 2): Status: Acute Plan: Levemir 20 units bid (3) Anxiety: Status: Acute Narrative Support Text: Improved with Valium. Plan: Continue PO Valium. (4) Hypoxia: Status: Acute Plan: Will ween down O2 as tolerated by patient. Keep SpO2 > 88%.
[2021-08-11] MEDS: LEVEMIR SC SCH ×2 (12:00→20:14)
--- NOTE | 2021-08-11 13:02 | RAD ---
HISTORYcovid pneumonia Relevant Clinical InformationSTUDYCHEST, 1 VIEWCOMPARISONOne-view chest August 10, 2021.FINDINGSThe trachea is deviated to the right due to left thyroid enlargement previously documented on CT scan in 2018. The cardiac silhouette is unremarkable. The bibasilar infiltrates are stable compared to yesterday's exam. There is no effusion adenopathy or pneumothorax. The bony thorax is unremarkable.IMPRESSIONStable bilateral lower lobe infiltrates compared to yesterday's exam.Electronically signed by: GAURI CHIU (Aug 11, 2021 13:00:14)
[2021-08-11] MEDS: NS 1000 ML 1,000 ML IV SCH (17:47)
[2021-08-11] MEDS ORDERED: SNACK - Diabetic Appropriate PO SCH (20:00)
[2021-08-11] MEDS: SNACK - Diabetic Appropriate PO SCH (20:19)
[2021-08-11] MEDS: VALIUM PO PRN (21:18)
[2021-08-12] MEDS: ASCORBIC ACID INJ MULTI-DOSE VIAL 1,500 MG in NS 100 ML IV 100 ML IV SCH ×4 (02:50→21:00)
[2021-08-12] MEDS: SOLU-Medrol 40 MG VIAL IVP SCH ×3 (05:23→21:00)
[2021-08-12] MEDS: ZOSYN VIAL 3.375 GRAMS 3.375 G in NS 50 ML IV + SPIKE MINIBAG* 50 ML IV SCH ×3 (05:24→22:00)
[2021-08-12 05:28] LABS: BASOPHILS % (AUTO) 0.1 % (0.2-1.0); HEMOGLOBIN 10.9 g/dL (12.0-16.0); LYMPHOCYTES # (AUTO) 1.2 X10^3/uL (1.3-2.9); LYMPHOCYTES % (AUTO) 21.5 % (21.0-51.0); MEAN CORPUSCULAR HEMOGLOBIN 28.2 pg (27.0-34.0); MEAN CORPUSCULAR HGB CONC 34.1 g/dL (33.0-35.0); MEAN CORPUSCULAR VOLUME 82.6 fL (80.0-100.0); MEAN PLATELET VOLUME 8.7 fL (7.4-11.0); MONOCYTES # (AUTO) 0.4 x10^3/uL (0.3-0.8); MONOCYTES % (AUTO) 7.3 % (0.0-13.0); NEUTROPHILS # (AUTO) 3.9 x10^3/uL (2.2-4.8); NEUTROPHILS % (AUTO) 71.1 % (42.0-75.0); PLATELET COUNT 216 X10^3/uL (150.0-450.0); RED BLOOD COUNT 3.87 X10^6/uL (3.5-5.4); WHITE BLOOD COUNT 5.4 X10^3/uL (3.6-10.0)
[2021-08-12 05:38] LABS: ALANINE AMINOTRANSFERASE 45 Units/L (12-78); ALBUMIN 2.2 g/dL (3.4-5.0); ALKALINE PHOSPHATASE 131 Units/L (46-116); ASPARTATE AMINO TRANSFERASE 45 Units/L (15-37); BLOOD UREA NITROGEN 26 mg/dL (7-18); CARBON DIOXIDE 26.6 mmol/L (21-32); CHLORIDE 106 mmol/L (98-107); COR CA(FOR HYPOALB) 10.4 mg/dL (8.5-10.1); COR NA(FOR HYPERGLY) 143 mmol/L (136-145); CREATININE 0.85 mg/dL (0.55-1.02); SODIUM 142 mmol/L (136-145); TOTAL PROTEIN 6.7 g/dL (6.4-8.2); eGFR NON BLACK RACES > 60 (>60)
[2021-08-12] MEDS: PULMICORT NEB TX 0.5 MG NEB SCH ×2 (09:15→21:44)
[2021-08-12] MEDS: BROVANA IN SCH ×2 (09:15→21:44)
[2021-08-12] MEDS: VITAMIN D3 125 mcg (5,000 UNITS) PO SCH (10:00)
[2021-08-12] MEDS: VIBRAMYCIN PO SCH ×2 (10:00→21:00)
[2021-08-12] MEDS: TRICOR TAB 160 MG PO SCH (10:00)
[2021-08-12] MEDS: VALIUM PO PRN ×2 (10:51→21:00)
[2021-08-12] MEDS: LEVEMIR SC SCH ×2 (11:10→21:00)
[2021-08-12] MEDS: REMDESIVIR 100 MG in NS 250 ML IV 250 ML IV SCH (11:11)
[2021-08-12] MEDS: PEPCID TAB 40 MG PO SCH ×2 (11:11→21:00)
[2021-08-12] MEDS: LOVENOX INJ 30 MG SYR SC SCH ×2 (11:11→21:00)
[2021-08-12] MEDS: ZINC SULFATE PO SCH ×2 (11:12→21:00)
--- NOTE | 2021-08-12 11:38 | PCM.PROG ---
Progress Note Progress Note for Day of Date of Exam: 08/12/21 Subjective Subjective: Better overall today. Breathing better. Past Medical Family Social History Past Med/Fam/Surg Hx: No changes since H&P Allergies: Allergies No Known Drug Allergies Allergy (Verified 08/09/21 11:15) Review of Systems ROS: No change since H&P Vital Signs and I&O's Vital Signs: Temperature 97.9 F Pulse Rate [Right Brachial] 88 Pulse Rate 74 Respiratory Rate 41 Blood Pressure [Right Arm] 154/85 Blood Pressure 157/75 O2 Sat by Pulse Oximetry 90 Intake and Output: Intake & Output 08/09/21 08/10/21 08/11/21 08/12/21 11:59 11:59 11:59 11:59 Intake Total 1014 / 1014 2044 / 2044 1490 / 1490 Output Total 300 / 300 200 / 200 Balance 1014 / 1014 1744 / 1744 1290 / 1290 Physical Exam Oriented: Normal Eyes: Normal Respiratory: Normal Cardiovascular: Normal Auscultation: Bowel Sounds: Normal Tenderness: Normal Skin: Normal Musculoskeletal: Normal Psychiatric: Normal Mood Description: Calm Affect: Normal Speech Pattern: Clear and Appropriate Laboratory and Diagnostics Result Diagrams: 08/12/21 04:19 08/12/21 04:19 Labs: 08/11/21 21:05 Sputum - Expectorated Sputum Sputum Culture - Preliminary 08/11/21 21:05 Sputum - Expectorated Sputum - Final 08/09/21 17:33 Blood Blood Culture - Preliminary 08/09/21 17:28 Blood Blood Culture - Preliminary Laboratory WBC 5.4 X10^3/uL (3.6-10.0) 08/12/21 04:19 RBC 3.87 X10^6/uL (3.5-5.4) 08/12/21 04:19 Hgb 10.9 g/dL (12.0-16.0) L 08/12/21 04:19 Hct 32.0 % (36.0-47.0) L 08/12/21 04:19 MCV 82.6 fL (80.0-100.0) 08/12/21 04:19 MCH 28.2 pg (27.0-34.0) 08/12/21 04:19 MCHC 34.1 g/dL (33.0-35.0) 08/12/21 04:19 RDW 15.0 % (11.6-16.5) 08/12/21 04:19 Plt Count 216 X10^3/uL (150.0-450.0) 08/12/21 04:19 MPV 8.7 fL (7.4-11.0) 08/12/21 04:19 Neut % (Auto) 71.1 % (42.0-75.0) 08/12/21 04:19 Lymph % (Auto) 21.5 % (21.0-51.0) 08/12/21 04:19 [place] % (Auto) 7.3 % (0.0-13.0) 08/12/21 04:19 Eos % (Auto) 0.0 % (0.9-2.9) L 08/12/21 04:19 Baso % (Auto) 0.1 % (0.2-1.0) L 08/12/21 04:19 Neut # (Auto) 3.9 x10^3/uL (2.2-4.8) 08/12/21 04:19 Lymph # (Auto) 1.2 X10^3/uL (1.3-2.9) L 08/12/21 04:19 [place] # (Auto) 0.4 x10^3/uL (0.3-0.8) 08/12/21 04:19 Eos # (Auto) 0.0 x10^3/uL (0.0-0.2) 08/12/21 04:19 Baso # (Auto) 0.0 X10^3/uL (0.0-0.1) 08/12/21 04:19 Absolute Nucleated RBC 0.1 /100WBC 08/12/21 04:19 D-Dimer 0.77 ug/ml (0.0-0.57) H* 08/09/21 11:50 Sample Site Rbra 08/11/21 06:11 ABG pH 7.450 (7.35-7.45) 08/11/21 06:11 ABG pCO2 37.0 mmHg (35.0-45.0) 08/11/21 06:11 ABG pO2 61.0 mmHg (80.0-100.0) L 08/11/21 06:11 ABG HCO3 25.7 mmol/L (22-26) 08/11/21 06:11 ABG O2 Saturation 92.0 % (90-100) 08/11/21 06:11 ABG Base Excess 1.8 mmol/L (-2.0-2.0) 08/11/21 06:11 Robert Test Na 08/11/21 06:11 A-a Gradient 149.0 mmHg 08/11/21 06:11 FiO2 36.0 08/11/21 06:11 Blood Gas Comments Darshan abg well-mtf 08/11/21 06:11 Sodium 142 mmol/L (136-145) 08/12/21 04:19 Corrected Sodium 143 mmol/L (136-145) 08/12/21 04:19 Potassium 3.7 mmol/L (3.5-5.1) 08/12/21 04:19 Chloride 106 mmol/L (98-107) 08/12/21 04:19 Carbon Dioxide 26.6 mmol/L (21-32) 08/12/21 04:19 BUN 26 mg/dL (7-18) H 08/12/21 04:19 Creatinine 0.85 mg/dL (0.55-1.02) 08/12/21 04:19 Est GFR (MDRD) Af Amer > 60 (>60) 08/12/21 04:19 Est GFR (MDRD) Non-Af > 60 (>60) 08/12/21 04:19 Glucose 153 mg/dL (65-99) H 08/12/21 04:19 POC Glucose (mg/dL) 333 mg/dL (65-99) H 08/11/21 19:40 Hemoglobin A1c 8.9 % 08/11/21 04:14 Lactic Acid 1.5 mmol/L (0.4-2.0) 08/10/21 04:07 Calcium 9.0 mg/dL (8.5-10.1) 08/12/21 04:19 Corrected Calcium 10.4 mg/dL (8.5-10.1) H 08/12/21 04:19 Ferritin 1340 ng/mL (8-252) H 08/11/21 04:14 Total Bilirubin 0.40 mg/dL (0.2-1.0) 08/12/21 04:19 AST 45 Units/L (15-37) H 08/12/21 04:19 ALT 45 Units/L (12-78) 08/12/21 04:19 Alkaline Phosphatase 131 Units/L (46-116) H 08/12/21 04:19 C-Reactive Protein 3.50 mg/L (0-3.0) H 08/12/21 04:19 B-Natriuretic Peptide 42.1 pg/mL (0-79) 08/09/21 11:50 Total Protein 6.7 g/dL (6.4-8.2) 08/12/21 04:19 Albumin 2.2 g/dL (3.4-5.0) L 08/12/21 04:19 Globulin 4.5 g/dL (2.5-4.5) 08/12/21 04:19 Albumin/Globulin Ratio 0.5 Ratio (1.1-2.1) L 08/12/21 04:19 Specimen Type Clean catch urine 08/10/21 01:09 Urine Color Yellow (YELLOW) 08/10/21 01:09 Urine Appearance Slightly hazy (CLEAR) 08/10/21 01:09 Urine pH 6.0 (5.0 - 8.0) 08/10/21 01:09 Ur Specific [place] 1.020 (1.000-1.030) 08/10/21 01:09 Urine Protein 3+ (NEGATIVE) 08/10/21 01:09 Urine Glucose (UA) 4+ (NEGATIVE) 08/10/21 01:09 Urine Ketones 2+ (NEGATIVE) 08/10/21 01:09 Urine Occult Blood 2+ (NEGATIVE) 08/10/21 01:09 Urine Nitrite Negative (NEGATIVE) 08/10/21 01:09 Urine Bilirubin Negative (NEGATIVE) 08/10/21 01:09 Urine Urobilinogen Normal (NORMAL) 08/10/21 01:09 Ur Leukocyte Esterase Negative (NEGATIVE) 08/10/21 01:09 Urine RBC None seen /HPF (0-3) 08/10/21 01:09 Urine WBC None seen /HPF (0-5) 08/10/21 01:09 Ur Squamous Epith Cells Few /HPF (NEGATIVE) 08/10/21 01:09 Urine Bacteria Trace /HPF (NEGATIVE) 08/10/21 01:09 Hyaline Casts Few /LPF (NEGATIVE) 08/10/21 01:09 Granular Casts Few /LPF (NEGATIVE) 08/10/21 01:09 Ur Culture Indicated? No/not indicated 08/10/21 01:09 Radiology Reviewed: No Plan (1) Pneumonia due to COVID-19 virus: Status: Acute Narrative Support Text: Improving overall. Plan: Covid/Remdesivir Protocol. Day 4 (2) DM2 (diabetes mellitus, type 2): Status: Acute Plan: Levemir 20 units bid (3) Anxiety: Status: Acute Plan: Continue PO Valium. (4) Hypoxia: Status: Acute Narrative Support Text: Stable. Plan: Will ween down O2 as tolerated by patient. Keep SpO2 > 88%.
[2021-08-12] MEDS: HumuLIN R SUBCUT PRN (12:54)
[2021-08-12] MEDS: MUCINEX EXPECTORANT PO SCH ×2 (13:46→21:00)
[2021-08-12] MEDS: NS 1000 ML 1,000 ML IV SCH (16:55)
[2021-08-12] MEDS: TYLENOL 325 MG TAB PO PRN (19:30)
[2021-08-12] MEDS: SNACK - Diabetic Appropriate PO SCH (20:00)
[2021-08-13] MEDS: ASCORBIC ACID INJ MULTI-DOSE VIAL 1,500 MG in NS 100 ML IV 100 ML IV SCH ×4 (04:00→20:39)
[2021-08-13] MEDS: ZOSYN VIAL 3.375 GRAMS 3.375 G in NS 50 ML IV + SPIKE MINIBAG* 50 ML IV SCH ×3 (05:51→21:42)
[2021-08-13] MEDS: SOLU-Medrol 40 MG VIAL IVP SCH ×3 (05:51→21:42)
[2021-08-13 05:58] LABS: BASOPHILS % (AUTO) 0.1 % (0.2-1.0); EOSINOPHILS % (AUTO) 0.2 % (0.9-2.9); HEMATOCRIT 32.5 % (36.0-47.0); HEMOGLOBIN 11.1 g/dL (12.0-16.0); LYMPHOCYTES # (AUTO) 1.3 X10^3/uL (1.3-2.9); LYMPHOCYTES % (AUTO) 20.8 % (21.0-51.0); MEAN CORPUSCULAR HGB CONC 34.1 g/dL (33.0-35.0); MEAN CORPUSCULAR VOLUME 82.1 fL (80.0-100.0); MEAN PLATELET VOLUME 8.6 fL (7.4-11.0); MONOCYTES # (AUTO) 0.3 x10^3/uL (0.3-0.8); MONOCYTES % (AUTO) 4.5 % (0.0-13.0); NEUTROPHILS # (AUTO) 4.6 x10^3/uL (2.2-4.8); NEUTROPHILS % (AUTO) 74.4 % (42.0-75.0); PLATELET COUNT 238 X10^3/uL (150.0-450.0); RED BLOOD COUNT 3.96 X10^6/uL (3.5-5.4); RED CELL DISTRIBUTION WIDTH 14.7 % (11.6-16.5); WHITE BLOOD COUNT 6.2 X10^3/uL (3.6-10.0)
[2021-08-13 06:00] LABS: ALANINE AMINOTRANSFERASE 42 Units/L (12-78); ALBUMIN 2.3 g/dL (3.4-5.0); ALKALINE PHOSPHATASE 123 Units/L (46-116); ASPARTATE AMINO TRANSFERASE 49 Units/L (15-37); BLOOD UREA NITROGEN 24 mg/dL (7-18); CALCIUM 8.8 mg/dL (8.5-10.1); CARBON DIOXIDE 28.9 mmol/L (21-32); CHLORIDE 102 mmol/L (98-107); COR CA(FOR HYPOALB) 10.2 mg/dL (8.5-10.1); COR NA(FOR HYPERGLY) 141 mmol/L (136-145); CREATININE 0.86 mg/dL (0.55-1.02); SODIUM 140 mmol/L (136-145); TOTAL PROTEIN 6.7 g/dL (6.4-8.2); eGFR NON BLACK RACES > 60 (>60)
[2021-08-13 07:54] LABS: BAND NEUTROPHILS % 4 % (0-10); METAMYELOCYTES % 2; PLATELET MORPHOLOGY COMMENT NORMAL (NORMAL)
[2021-08-13] MEDS: BROVANA IN SCH ×2 (08:05→20:00)
[2021-08-13] MEDS: PULMICORT NEB TX 0.5 MG NEB SCH ×2 (08:05→20:00)
--- NOTE | 2021-08-13 08:11 | RAD ---
HISTORYCOVID PNEUMONIASTUDYCHEST, 1 [id number]/08/2021FINDINGSThe cardiomediastinal silhouette is stable. Similar bilateral airspace opacities. The bony thorax appears intact.IMPRESSIONNo significant change.Electronically signed by: APPLE CORNELL (Aug 13, 2021 08:09:07)
[2021-08-13] MEDS: LOVENOX INJ 30 MG SYR SC SCH ×2 (09:25→20:40)
[2021-08-13] MEDS: MUCINEX EXPECTORANT PO SCH ×2 (09:27→20:41)
[2021-08-13] MEDS: LEVEMIR SC SCH ×2 (09:27→20:40)
[2021-08-13] MEDS: PEPCID TAB 40 MG PO SCH ×2 (09:27→20:42)
[2021-08-13] MEDS: VIBRAMYCIN PO SCH ×2 (09:28→20:42)
[2021-08-13] MEDS: VITAMIN D3 125 mcg (5,000 UNITS) PO SCH (09:28)
[2021-08-13] MEDS: TRICOR TAB 160 MG PO SCH (09:28)
[2021-08-13] MEDS: REMDESIVIR 100 MG in NS 250 ML IV 250 ML IV SCH (09:28)
[2021-08-13] MEDS: ZINC SULFATE PO SCH ×2 (09:28→20:42)
[2021-08-13] MEDS: VALIUM PO PRN ×2 (10:00→21:42)
[2021-08-13] MEDS ORDERED: TESSALON PERLES PO PRN (10:05)
[2021-08-13] MEDS: HumuLIN R SUBCUT PRN ×2 (12:18→18:09)
--- NOTE | 2021-08-13 13:43 | PCM.PROG ---
Progress Note Progress Note for Day of Date of Exam: 08/13/21 Subjective Subjective: Better overall today. Breathing better. Past Medical Family Social History Past Med/Fam/Surg Hx: No changes since H&P Allergies: Allergies No Known Drug Allergies Allergy (Verified 08/09/21 11:15) Review of Systems ROS: No change since H&P Vital Signs and I&O's Vital Signs: Temperature 97.9 F Pulse Rate [Right Brachial] 88 Pulse Rate 66 Respiratory Rate 35 Blood Pressure [Right Arm] 154/85 Blood Pressure 177/76 O2 Sat by Pulse Oximetry 91 Intake and Output: Intake & Output 08/11/21 08/12/21 08/13/21 08/14/21 11:59 11:59 11:59 11:59 Intake Total 2044 / 2044 1490 / 1490 1637 / 1637 Output Total 300 / 300 200 / 200 Balance 1744 / 1744 1290 / 1290 1637 / 1637 Physical Exam Oriented: Normal Eyes: Normal Nose: Normal Throat: Normal Respiratory: Normal Cardiovascular: Normal Auscultation: Bowel Sounds: Normal Tenderness: Normal Skin: Normal Musculoskeletal: Normal Psychiatric: Normal Mood Description: Calm Affect: Normal Speech Pattern: Clear and Appropriate Laboratory and Diagnostics Result Diagrams: 08/13/21 04:56 08/13/21 04:56 Labs: 08/11/21 21:05 Sputum - Expectorated Sputum Sputum Culture - Preliminary 08/11/21 21:05 Sputum - Expectorated Sputum - Final 08/09/21 17:33 Blood Blood Culture - Preliminary 08/09/21 17:28 Blood Blood Culture - Preliminary Laboratory WBC 6.2 X10^3/uL (3.6-10.0) 08/13/21 04:56 RBC 3.96 X10^6/uL (3.5-5.4) 08/13/21 04:56 Hgb 11.1 g/dL (12.0-16.0) L 08/13/21 04:56 Hct 32.5 % (36.0-47.0) L 08/13/21 04:56 MCV 82.1 fL (80.0-100.0) 08/13/21 04:56 MCH 28.0 pg (27.0-34.0) 08/13/21 04:56 MCHC 34.1 g/dL (33.0-35.0) 08/13/21 04:56 RDW 14.7 % (11.6-16.5) 08/13/21 04:56 Plt Count 238 X10^3/uL (150.0-450.0) 08/13/21 04:56 Plt Count Comment Adequate (ADEQUATE) 08/13/21 04:56 MPV 8.6 fL (7.4-11.0) 08/13/21 04:56 Neut % (Auto) 74.4 % (42.0-75.0) 08/13/21 04:56 Lymph % (Auto) 20.8 % (21.0-51.0) L 08/13/21 04:56 [place] % (Auto) 4.5 % (0.0-13.0) 08/13/21 04:56 Eos % (Auto) 0.2 % (0.9-2.9) L 08/13/21 04:56 Baso % (Auto) 0.1 % (0.2-1.0) L 08/13/21 04:56 Neut # (Auto) 4.6 x10^3/uL (2.2-4.8) 08/13/21 04:56 Lymph # (Auto) 1.3 X10^3/uL (1.3-2.9) 08/13/21 04:56 [place] # (Auto) 0.3 x10^3/uL (0.3-0.8) 08/13/21 04:56 Eos # (Auto) 0.0 x10^3/uL (0.0-0.2) 08/13/21 04:56 Baso # (Auto) 0.0 X10^3/uL (0.0-0.1) 08/13/21 04:56 Absolute Nucleated RBC 0.1 /100WBC 08/13/21 04:56 Total Counted 100 08/13/21 04:56 Neutrophils % (Manual) 76 % (39-76) 08/13/21 04:56 Band Neutrophils % 4 % (0-10) 08/13/21 04:56 Lymphocytes % (Manual) 13 % (13-43) 08/13/21 04:56 Monocytes % (Manual) 5 % (4-9) 08/13/21 04:56 Metamyelocytes % 2 08/13/21 04:56 Plt Morphology Comment Normal (NORMAL) 08/13/21 04:56 RBC Morphology Normal (NORMAL) 08/13/21 04:56 D-Dimer 0.77 ug/ml (0.0-0.57) H* 08/09/21 11:50 Sample Site Rbra 08/11/21 06:11 ABG pH 7.450 (7.35-7.45) 08/11/21 06:11 ABG pCO2 37.0 mmHg (35.0-45.0) 08/11/21 06:11 ABG pO2 61.0 mmHg (80.0-100.0) L 08/11/21 06:11 ABG HCO3 25.7 mmol/L (22-26) 08/11/21 06:11 ABG O2 Saturation 92.0 % (90-100) 08/11/21 06:11 ABG Base Excess 1.8 mmol/L (-2.0-2.0) 08/11/21 06:11 Robert Test Na 08/11/21 06:11 A-a Gradient 149.0 mmHg 08/11/21 06:11 FiO2 36.0 08/11/21 06:11 Blood Gas Comments Darshan abg well-mtf 08/11/21 06:11 Sodium 140 mmol/L (136-145) 08/13/21 04:56 Corrected Sodium 141 mmol/L (136-145) 08/13/21 04:56 Potassium 3.7 mmol/L (3.5-5.1) 08/13/21 04:56 Chloride 102 mmol/L (98-107) 08/13/21 04:56 Carbon Dioxide 28.9 mmol/L (21-32) 08/13/21 04:56 BUN 24 mg/dL (7-18) H 08/13/21 04:56 Creatinine 0.86 mg/dL (0.55-1.02) 08/13/21 04:56 Est GFR (MDRD) Af Amer > 60 (>60) 08/13/21 04:56 Est GFR (MDRD) Non-Af > 60 (>60) 08/13/21 04:56 Glucose 146 mg/dL (65-99) H 08/13/21 04:56 POC Glucose (mg/dL) 246 mg/dL (65-99) H 08/13/21 11:31 Hemoglobin A1c 8.9 % 08/11/21 04:14 Lactic Acid 1.5 mmol/L (0.4-2.0) 08/10/21 04:07 Calcium 8.8 mg/dL (8.5-10.1) 08/13/21 04:56 Corrected Calcium 10.2 mg/dL (8.5-10.1) H 08/13/21 04:56 Ferritin 1340 ng/mL (8-252) H 08/11/21 04:14 Total Bilirubin 0.50 mg/dL (0.2-1.0) 08/13/21 04:56 AST 49 Units/L (15-37) H 08/13/21 04:56 ALT 42 Units/L (12-78) 08/13/21 04:56 Alkaline Phosphatase 123 Units/L (46-116) H 08/13/21 04:56 C-Reactive Protein 3.50 mg/L (0-3.0) H 08/12/21 04:19 B-Natriuretic Peptide 42.1 pg/mL (0-79) 08/09/21 11:50 Total Protein 6.7 g/dL (6.4-8.2) 08/13/21 04:56 Albumin 2.3 g/dL (3.4-5.0) L 08/13/21 04:56 Globulin 4.4 g/dL (2.5-4.5) 08/13/21 04:56 Albumin/Globulin Ratio 0.5 Ratio (1.1-2.1) L 08/13/21 04:56 Specimen Type Clean catch urine 08/10/21 01:09 Urine Color Yellow (YELLOW) 08/10/21 01:09 Urine Appearance Slightly hazy (CLEAR) 08/10/21 01:09 Urine pH 6.0 (5.0 - 8.0) 08/10/21 01:09 Ur Specific [place] 1.020 (1.000-1.030) 08/10/21 01:09 Urine Protein 3+ (NEGATIVE) 08/10/21 01:09 Urine Glucose (UA) 4+ (NEGATIVE) 08/10/21 01:09 Urine Ketones 2+ (NEGATIVE) 08/10/21 01:09 Urine Occult Blood 2+ (NEGATIVE) 08/10/21 01:09 Urine Nitrite Negative (NEGATIVE) 08/10/21 01:09 Urine Bilirubin Negative (NEGATIVE) 08/10/21 01:09 Urine Urobilinogen Normal (NORMAL) 08/10/21 01:09 Ur Leukocyte Esterase Negative (NEGATIVE) 08/10/21 01:09 Urine RBC None seen /HPF (0-3) 08/10/21 01:09 Urine WBC None seen /HPF (0-5) 08/10/21 01:09 Ur Squamous Epith Cells Few /HPF (NEGATIVE) 08/10/21 01:09 Urine Bacteria Trace /HPF (NEGATIVE) 08/10/21 01:09 Hyaline Casts Few /LPF (NEGATIVE) 08/10/21 01:09 Granular Casts Few /LPF (NEGATIVE) 08/10/21 01:09 Ur Culture Indicated? No/not indicated 08/10/21 01:09 Radiology Reviewed: Yes Plan (1) Cough: Status: Acute Plan: Benzonatate. (2) Pneumonia due to COVID-19 virus: Status: Acute Plan: Covid/Remdesivir Protocol. Day 5. Possible discharge home in am. (3) DM2 (diabetes mellitus, type 2): Status: Acute Plan: Levemir 20 units bid (4) Anxiety: Status: Acute Plan: Continue PO Valium. (5) Hypoxia: Status: Acute Plan: Will ween down O2 as tolerated by patient. Keep SpO2 > 88%.
[2021-08-13] MEDS: NS 1000 ML 1,000 ML IV SCH (18:08)
[2021-08-13] MEDS: SNACK - Diabetic Appropriate PO SCH (20:32)
[2021-08-14] MEDS: ASCORBIC ACID INJ MULTI-DOSE VIAL 1,500 MG in NS 100 ML IV 100 ML IV SCH ×2 (02:10→09:20)
[2021-08-14 05:12] LABS: BASOPHILS % (AUTO) 0.2 % (0.2-1.0); EOSINOPHILS % (AUTO) 0.1 % (0.9-2.9); HEMATOCRIT 33.5 % (36.0-47.0); HEMOGLOBIN 11.3 g/dL (12.0-16.0); LYMPHOCYTES # (AUTO) 1.2 X10^3/uL (1.3-2.9); LYMPHOCYTES % (AUTO) 21.4 % (21.0-51.0); MEAN CORPUSCULAR HEMOGLOBIN 27.9 pg (27.0-34.0); MEAN CORPUSCULAR HGB CONC 33.7 g/dL (33.0-35.0); MEAN CORPUSCULAR VOLUME 82.7 fL (80.0-100.0); MEAN PLATELET VOLUME 8.8 fL (7.4-11.0); MONOCYTES # (AUTO) 0.2 x10^3/uL (0.3-0.8); MONOCYTES % (AUTO) 3.3 % (0.0-13.0); NEUTROPHILS # (AUTO) 4.4 x10^3/uL (2.2-4.8); PLATELET COUNT 235 X10^3/uL (150.0-450.0); RED BLOOD COUNT 4.05 X10^6/uL (3.5-5.4); RED CELL DISTRIBUTION WIDTH 14.6 % (11.6-16.5); WHITE BLOOD COUNT 5.8 X10^3/uL (3.6-10.0)
[2021-08-14 05:26] LABS: ALANINE AMINOTRANSFERASE 40 Units/L (12-78); ALBUMIN 2.2 g/dL (3.4-5.0); ALKALINE PHOSPHATASE 112 Units/L (46-116); ASPARTATE AMINO TRANSFERASE 48 Units/L (15-37); BLOOD UREA NITROGEN 24 mg/dL (7-18); CALCIUM 8.5 mg/dL (8.5-10.1); CARBON DIOXIDE 30.4 mmol/L (21-32); CHLORIDE 103 mmol/L (98-107); COR CA(FOR HYPOALB) 9.9 mg/dL (8.5-10.1); COR NA(FOR HYPERGLY) 140 mmol/L (136-145); CREATININE 0.85 mg/dL (0.55-1.02); SODIUM 139 mmol/L (136-145); TOTAL PROTEIN 6.4 g/dL (6.4-8.2); eGFR NON BLACK RACES > 60 (>60)
[2021-08-14] MEDS: SOLU-Medrol 40 MG VIAL IVP SCH (05:28)
[2021-08-14] MEDS: ZOSYN VIAL 3.375 GRAMS 3.375 G in NS 50 ML IV + SPIKE MINIBAG* 50 ML IV SCH (05:29)
--- NOTE | 2021-08-14 06:46 | RAD ---
HISTORYFollow-up COVID-19STUDYChest AP [id number]/10/2021FINDINGSHear t size is normal. Bilateral predominantly peripheral but some central lower lobe and to a lesser extent upper lobe infiltrates are present and unchanged. No pneumothorax or pleural effusion is identified. Bony thorax is unremarkable.IMPRESSIONNo change bilateral infiltrates as describedElectronically signed by: APPLE CORNELL (Aug 14, 2021 06:45:06)
[2021-08-14] MEDS: BROVANA IN SCH (09:05)
[2021-08-14] MEDS: PULMICORT NEB TX 0.5 MG NEB SCH (09:10)
[2021-08-14] MEDS: MUCINEX EXPECTORANT PO SCH (09:25)
[2021-08-14] MEDS: LOVENOX INJ 30 MG SYR SC SCH (09:25)
[2021-08-14] MEDS: VIBRAMYCIN PO SCH (09:25)
[2021-08-14] MEDS: PEPCID TAB 40 MG PO SCH (09:25)
[2021-08-14] MEDS: VITAMIN D3 125 mcg (5,000 UNITS) PO SCH (09:25)
[2021-08-14] MEDS: ZINC SULFATE PO SCH (09:25)
[2021-08-14] MEDS: TRICOR TAB 160 MG PO SCH (09:25)
[2021-08-14] MEDS: LEVEMIR SC SCH (09:25)
[2021-08-14 15:18] VITALS: BP 177/82
--- NOTE | 2021-08-23 09:23 | PCM.DCPLAN ---
DISCHARGE SUMMARY Admission Date Date of Admission: 08/09/21 Discharge Date Discharge Date: 08/14/21 Admission Diagnoses (1) Cough: Status: Acute (2) Pneumonia due to COVID-19 virus: Status: Chronic (3) DM2 (diabetes mellitus, type 2): Status: Chronic (4) Anxiety: Status: Acute (5) Hypoxia: Status: Acute Discharge Diagnoses Discharge Diagnosis: 1. Covid-19 Pneumonia 2. Hypoxia 3. DM2 Discharge Medications Discharge Medications: Home Medication List benzonatate [Tessalon Perles] 200 mg PO Q8H PRN #30 cap 08/14/21 [Rx] lisinopril 20 mg PO DAILY #30 tab 08/14/21 [Rx] metformin 500 mg PO BID #30 tab 08/14/21 [Rx] methylprednisolone [Medrol (Russ)] See Rx Instructions .ROUTE .COMPLEX #1 ea 08/14/21 [Rx] Prescriptions: benzonatate [Tessalon Perles] DOMINIC,KATY lisinopril DOMINIC,KATY metformin DOMINIC,KATY methylprednisolone [Medrol (Russ)] DOMINIC,KATY Hospital Course Vital Signs: Temperature 98.0 F Pulse Rate [Right Brachial] 88 Pulse Rate 71 Respiratory Rate 34 Blood Pressure [Right Arm] 154/85 Blood Pressure 177/82 O2 Sat by Pulse Oximetry 92 Latest Lab Results: Laboratory Last Values WBC 5.8 X10^3/uL (3.6-10.0) 08/14/21 04:21 RBC 4.05 X10^6/uL (3.5-5.4) 08/14/21 04:21 Hgb 11.3 g/dL (12.0-16.0) L 08/14/21 04:21 Hct 33.5 % (36.0-47.0) L 08/14/21 04:21 MCV 82.7 fL (80.0-100.0) 08/14/21 04:21 MCH 27.9 pg (27.0-34.0) 08/14/21 04:21 MCHC 33.7 g/dL (33.0-35.0) 08/14/21 04:21 RDW 14.6 % (11.6-16.5) 08/14/21 04:21 Plt Count 235 X10^3/uL (150.0-450.0) 08/14/21 04:21 Plt Count Comment Adequate (ADEQUATE) 08/13/21 04:56 MPV 8.8 fL (7.4-11.0) 08/14/21 04:21 Neut % (Auto) 75.0 % (42.0-75.0) 08/14/21 04:21 Lymph % (Auto) 21.4 % (21.0-51.0) 08/14/21 04:21 [place] % (Auto) 3.3 % (0.0-13.0) 08/14/21 04:21 Eos % (Auto) 0.1 % (0.9-2.9) L 08/14/21 04:21 Baso % (Auto) 0.2 % (0.2-1.0) 08/14/21 04:21 Neut # (Auto) 4.4 x10^3/uL (2.2-4.8) 08/14/21 04:21 Lymph # (Auto) 1.2 X10^3/uL (1.3-2.9) L 08/14/21 04:21 [place] # (Auto) 0.2 x10^3/uL (0.3-0.8) L 08/14/21 04:21 Eos # (Auto) 0.0 x10^3/uL (0.0-0.2) 08/14/21 04:21 Baso # (Auto) 0.0 X10^3/uL (0.0-0.1) 08/14/21 04:21 Absolute Nucleated RBC 0.1 /100WBC 08/14/21 04:21 Total Counted 100 08/13/21 04:56 Neutrophils % (Manual) 76 % (39-76) 08/13/21 04:56 Band Neutrophils % 4 % (0-10) 08/13/21 04:56 Lymphocytes % (Manual) 13 % (13-43) 08/13/21 04:56 Monocytes % (Manual) 5 % (4-9) 08/13/21 04:56 Metamyelocytes % 2 08/13/21 04:56 Plt Morphology Comment Normal (NORMAL) 08/13/21 04:56 RBC Morphology Normal (NORMAL) 08/13/21 04:56 D-Dimer 0.77 ug/ml (0.0-0.57) H* 08/09/21 11:50 Sample Site Rbra 08/11/21 06:11 ABG pH 7.450 (7.35-7.45) 08/11/21 06:11 ABG pCO2 37.0 mmHg (35.0-45.0) 08/11/21 06:11 ABG pO2 61.0 mmHg (80.0-100.0) L 08/11/21 06:11 ABG HCO3 25.7 mmol/L (22-26) 08/11/21 06:11 ABG O2 Saturation 92.0 % (90-100) 08/11/21 06:11 ABG Base Excess 1.8 mmol/L (-2.0-2.0) 08/11/21 06:11 Robert Test Na 08/11/21 06:11 A-a Gradient 149.0 mmHg 08/11/21 06:11 FiO2 36.0 08/11/21 06:11 Blood Gas Comments Darshan abg well-mtf 08/11/21 06:11 Sodium 139 mmol/L (136-145) 08/14/21 04:21 Corrected Sodium 140 mmol/L (136-145) 08/14/21 04:21 Potassium 3.9 mmol/L (3.5-5.1) 08/14/21 04:21 Chloride 103 mmol/L (98-107) 08/14/21 04:21 Carbon Dioxide 30.4 mmol/L (21-32) 08/14/21 04:21 BUN 24 mg/dL (7-18) H 08/14/21 04:21 Creatinine 0.85 mg/dL (0.55-1.02) 08/14/21 04:21 Est GFR (MDRD) Af Amer > 60 (>60) 08/14/21 04:21 Est GFR (MDRD) Non-Af > 60 (>60) 08/14/21 04:21 Glucose 127 mg/dL (65-99) H 08/14/21 04:21 POC Glucose (mg/dL) 257 mg/dL (65-99) H 08/13/21 20:23 Hemoglobin A1c 8.9 % 08/11/21 04:14 Lactic Acid 1.5 mmol/L (0.4-2.0) 08/10/21 04:07 Calcium 8.5 mg/dL (8.5-10.1) 08/14/21 04:21 Corrected Calcium 9.9 mg/dL (8.5-10.1) 08/14/21 04:21 Ferritin 1340 ng/mL (8-252) H 08/11/21 04:14 Total Bilirubin 0.50 mg/dL (0.2-1.0) 08/14/21 04:21 AST 48 Units/L (15-37) H 08/14/21 04:21 ALT 40 Units/L (12-78) 08/14/21 04:21 Alkaline Phosphatase 112 Units/L (46-116) 08/14/21 04:21 C-Reactive Protein 3.50 mg/L (0-3.0) H 08/12/21 04:19 B-Natriuretic Peptide 42.1 pg/mL (0-79) 08/09/21 11:50 Total Protein 6.4 g/dL (6.4-8.2) 08/14/21 04:21 Albumin 2.2 g/dL (3.4-5.0) L 08/14/21 04:21 Globulin 4.2 g/dL (2.5-4.5) 08/14/21 04:21 Albumin/Globulin Ratio 0.5 Ratio (1.1-2.1) L 08/14/21 04:21 Specimen Type Clean catch urine 08/10/21 01:09 Urine Color Yellow (YELLOW) 08/10/21 01:09 Urine Appearance Slightly hazy (CLEAR) 08/10/21 01:09 Urine pH 6.0 (5.0 - 8.0) 08/10/21 01:09 Ur Specific [place] 1.020 (1.000-1.030) 08/10/21 01:09 Urine Protein 3+ (NEGATIVE) 08/10/21 01:09 Urine Glucose (UA) 4+ (NEGATIVE) 08/10/21 01:09 Urine Ketones 2+ (NEGATIVE) 08/10/21 01:09 Urine Occult Blood 2+ (NEGATIVE) 08/10/21 01:09 Urine Nitrite Negative (NEGATIVE) 08/10/21 01:09 Urine Bilirubin Negative (NEGATIVE) 08/10/21 01:09 Urine Urobilinogen Normal (NORMAL) 08/10/21 01:09 Ur Leukocyte Esterase Negative (NEGATIVE) 08/10/21 01:09 Urine RBC None seen /HPF (0-3) 08/10/21 01:09 Urine WBC None seen /HPF (0-5) 08/10/21 01:09 Ur Squamous Epith Cells Few /HPF (NEGATIVE) 08/10/21 01:09 Urine Bacteria Trace /HPF (NEGATIVE) 08/10/21 01:09 Hyaline Casts Few /LPF (NEGATIVE) 08/10/21 01:09 Granular Casts Few /LPF (NEGATIVE) 08/10/21 01:09 Ur Culture Indicated? No/not indicated 08/10/21 01:09 Hospital Course: The patient did well during her hospital stay. She received IV Remdesivir daily for 5 days. She was diagnosed with DM2 during her hospitalization. She was covered with insulin for that. Antibiotics were given for her pneumonia. She was discharged home 1 day after her Remdesivir infusions. At this point she was feeling much better. Instructions Instructions: Tips for Eating Away From Home If You Have Diabetes Incentive Spirometer Viral Respiratory Infection, Jlvh-Xo-Gcni Home Oxygen Use, Adult Hand Washing, Ekll-ly-Orda Hypoxia Cough, Adult, Nugx-pm-Lmci Type 2 Diabetes Mellitus, Self Care, Adult, Vusm-cg-Ptxk Diabetes Mellitus and Skin Care Coping With Diabetes Droplet Precautions, Btek-ee-Jsus Contact Precautions, Ndoq-tg-Wmvn How to Use a Nebulizer, Adult Hypertension, Atar-zn-Ymzk Blood Glucose Monitoring, Adult Community-Acquired Pneumonia, Adult, Nbbb-jp-Pxlc Diabetes Mellitus and Nutrition Forms: Precautions for COVID19 [place] [facility] Social Distancing
== END 2021-08-14 12:50 | disposition home or self-care (01) | DRG 178 ==
LOC: ER 11:14 → ICU 15:17
PROVIDERS: ADMIT Family Medicine; ATTEND Family Medicine
DX: E11.65 Type 2 diabetes mellitus with hyperglycemia; R79.82 Elevated C-reactive protein (CRP); U07.1 COVID-19; B37.89 Other sites of candidiasis; R26.89 Other abnormalities of gait and mobility; R06.02 Shortness of breath; R51.9 Headache, unspecified; F41.8 Other specified anxiety disorders